=== PATIENT | female | born 1980 | race African-American/Black ===

== ENCOUNTER → 2019-05-21 | Outpatient (CLI) | payer OTHER ==
--- NOTE | 2019-05-21 10:57 | REP ---
DIGITAL DIAGNOSTIC BILATERAL MAMMOGRAPHY WITH CAD, AND FOCUSED RIGHT BREAST SONOGRAPHY. HISTORY: Right breast lump. Contralateral screening. This is no comparison breast imaging. The patient reports a palpable lump felt by her clinician at approximately 10-o'clock position in the upper outer quadrant. Skin marker had been placed in the superomedial quadrant by the patient. The superior aspect of the right breast is scanned. MAMMOGRAPHIC FINDINGS: A skin marker is affixed to the skin at the site of the palpable lump. This projects in the superomedial quadrant. Routine views of the right breast are augmented by magnified focal spot compression views. Heterogeneously dense breast parenchyma is seen in a pattern which may inhibit the sensitivity of mammography. No mammographic findings to suggest malignancy are seen. No mass lesion is observed. SONOGRAPHIC FINDINGS: The right breast scanned from the 9-o'clock position to 3- o'clock position through the superior aspect. Heterogeneous fibroglandular background echotexture is seen. There are multiple anechoic cysts. The largest are at the 1-o'clock position measuring 0.7 cm in greatest diameter and a 10-o'clock position measuring 0.9 x 0.5 x 0.7 cm in diameter. This is felt to correspond with the area of the palpable lump indicated by the patient. It is located 4.9 cm from the nipple. No mass or suspicious sonographic features are seen. IMPRESSION: BIRADS 2: BI-RADS/ACR category 2 mammogram. Benign Findings. BIRADS category 2 benign findings. Simple cyst seen by ultrasound. Repeat screening mammography recommended 1 year. This mammogram was interpreted with the aid of an FDA-approved computer-aided detection system. The patient states she had a clinical breast exam in May 2019 The patient letter being requested is M2 dense. [facility] breast cancer is 9.8 %. Electronically Signed by Jony Del Real MD 05/21/2019 11:38 A
== END ==
LOC: M RAD 09:07
PROVIDERS: ATTEND Physician Assistant
DX: N60.01 Solitary cyst of right breast (principal)